=== PATIENT | female | born 1980 | race African-American/Black ===

== ENCOUNTER 2021-07-26 15:57 | Inpatient (IN) | payer OTHER ==
[2021-07-26 20:00] LABS: HEMATOCRIT 38.7 % (32.4-45.2); MCH 30.6 pg (25.7-33.7); MCHC 33.7 g/dl (32.0-36.0); MEAN CELL VOLUME 90.7 fl (80-96); MEAN PLT VOLUME 7.9 fl (7.5-11.1); PLATELET COUNT 172 10^3/uL (134-434); RBC 4.26 M/mm3 (3.60-5.2); RDW 13.4 % (11.6-15.6); WHITE BLOOD COUNT 3.5 K/mm3 (4.0-10.0)
[2021-07-26 20:23] LABS: BLOOD UREA NITROGEN 8.3 mg/dL (7-18); CALCIUM 8.9 mg/dL (8.5-10.1)
[2021-07-26 20:24] LABS: ALBUMIN 3.6 g/dl (3.4-5.0)
[2021-07-26 20:26] LABS: BILIRUBIN,DIRECT 0.1 mg/dL (0.0-0.2)
[2021-07-26 20:27] LABS: CREATININE 0.9 mg/dL (0.55-1.3)
[2021-07-26 20:28] LABS: BILIRUBIN,TOTAL 0.2 mg/dL (0.2-1); TOT PROT 7.1 g/dl (6.4-8.2)
[2021-07-26] MEDS: carBAMazepine XR 400 MG TAB.ER.12H PO SCH (22:14)
[2021-07-27] MEDS: carBAMazepine XR 400 MG TAB.ER.12H PO SCH ×2 (09:29→21:01)
[2021-07-27 12:17] VITALS: BMI 42.7
[2021-07-27] MEDS ORDERED: ACETAMINOPHEN 325 MG TABLET (FP) PO PRN (23:15)
[2021-07-28] MEDS ORDERED: DOCUSATE SODIUM 100 MG CAPSULE (FP) PO SCH (10:00)
[2021-07-28] MEDS: carBAMazepine XR 400 MG TAB.ER.12H PO SCH (11:27)
[2021-07-28 15:05] VITALS: BP 126/75; PULSE 85; TEMP 98.7
== END 2021-07-28 15:45 | disposition home or self-care (01) | DRG 53 ==
LOC: JEEG 15:57 → J4S 15:58 → JEEG 15:59 → J4S 15:59
PROVIDERS: ADMIT Psychiatry & Neurology Neurology; ATTEND Psychiatry & Neurology Neurology
PROC: 4A00X4Z Measurement of Central Nervous Electrical Activity, External Approach (ICD-10-PCS; principal; 2021-07-26)
DX: G40.209 Localization-related (focal) (partial) symptomatic epilepsy and epileptic syndromes with complex partial seizures, not intractable, without status epilepticus (principal)
CPT/HCPCS: 36415; 80048; 80076; 80156; 85027; 93005; 93010; 95705